=== PATIENT | male | born 1955 | race Hispanic/Latino ===

== ENCOUNTER 2020-02-10 14:20 | Emergency (ER) | payer MEDICARE, SELFPAY ==
[2020-02-10 14:28] VITALS: BP 99/55; PULSE 70; RESP 17; TEMP 37; O2SAT 92
[2020-02-10 14:34] VITALS: PULSE 70
--- NOTE | 2020-02-10 15:01 | ED.GENADULT ---
HPI - General Adult General Chief complaint: Unspecified Stated complaint: DIALYSIS PORT BLEEDING Time Seen by Provider: 02/10/20 14:42 History of Present Illness HPI narrative: 64-year-old male presents emergency department for bleeding dialysis fistula that started prior to arrival. Patient states he completed dialysis this morning, and at home this afternoon, noticed bleeding coming from his right arm dialysis shunt. Patient applying pressure without success. Patient brought in by EMS. He states his next dialysis appointment is on Saturday. Related Data Allergies Allergy/AdvReac Type Severity Reaction Status Date / Time No Known Allergies Allergy Verified 10/29/18 11:31 Review of Systems Review of Systems: Narrative: CONSTITUTIONAL: Denies fever, chills, or sweats. EYES: Denies visual changes, redness, or discharge. ENT: Denies rhinorrhea, congestion, sore throat, or otalgia. CARDIOVASCULAR: Denies chest pain, palpitations, or edema. Bleeding right arm dialysis shunt RESPIRATORY: Denies cough or dyspnea. GASTROINTESTINAL: Denies abdominal pain, nausea, vomiting, or diarrhea. GENITOURINARY: Denies dysuria or hematuria. SKIN: Denies rash or itching. MUSCULOSKELETAL: Denies back pain, joint pain, or myalgia. NEUROLOGIC: Denies headache, numbness, dizziness, or weakness. PSYCHIATRIC: Denies anxiety or depression. [facility] Social History Social History Gender identity (if verbalized by the patient): Male Exam Narrative: Exam Narrative: GENERAL: Well-appearing, well-nourished, and in no acute distress. HEAD: Normocephalic, atraumatic. EYES: PERRLA and EOMI. ENT: Nares clear, no rhinorrhea or epistaxis. Mucous membranes moist. NECK: Supple. CHEST: Clear to auscultation. No respiratory distress. HEART: Regular rate and rhythm. No murmur heard. Normal peripheral pulses. ABDOMEN: Soft, nontender, nondistended, normal active bowel sounds. EXTREMITIES: Normal range of motion. No edema. Right arm bleeding dialysis fistula. SKIN: Warm, dry, no rash. NEURO: No focal deficits. Alert and oriented x3. PSYCH: Normal mood and affect. Course Reevaluation(s) Reevaluation #1: 1635 -reevaluated patient, no current bleeding. Counseled patient to keep pressure dressings on until next dialysis appointment. Counseled patient to return to emergency department if returns and if bleeding is unable to be controlled. Vital Signs Vital signs: Vital Signs Temperature 37.0 C 02/10/20 14:28 Pulse Rate 70 02/10/20 14:28 Respiratory Rate 17 02/10/20 14:28 Blood Pressure 99/55 L 02/10/20 14:28 Pulse Oximetry 92 02/10/20 14:28 Temperature 37.0 C 02/10/20 14:28 Pulse Rate 75 02/10/20 17:38 Respiratory Rate 16 02/10/20 17:38 Blood Pressure 107/52 L 02/10/20 17:38 Pulse Oximetry 95 02/10/20 17:38 Procedures Other Procedure Procedure 1: Other Procedure: Pressure applied to wound, and Dermabond applied over wound to stop bleeding. Medical Decision Making Medical Records Medical records reviewed: Yes I reviewed the patient's medical records. Vital Signs Vital Signs: Vital Signs Temperature 37.0 C 02/10/20 14:28 Pulse Rate 70 02/10/20 14:28 Respiratory Rate 17 02/10/20 14:28 Blood Pressure 99/55 L 02/10/20 14:28 Pulse Oximetry 92 02/10/20 14:28 Temperature 37.0 C 02/10/20 14:28 Pulse Rate 75 02/10/20 17:38 Respiratory Rate 16 02/10/20 17:38 Blood Pressure 107/52 L 02/10/20 17:38 Pulse Oximetry 95 02/10/20 17:38 Lab Data Lab results reviewed: Yes I reviewed the patient's lab results. Discharge Plan Discharge Clinical Impression: Bleeding from dialysis shunt Patient Disposition: Home, Self-Care Condition: Stable Additional Instructions: Hold pressure if bleeding returns. Otherwise keep dressing on until your next dialysis appointment. Discharge Date/Time: 02/10/20 17:40
[2020-02-10 15:49] VITALS: BP 100/53; PULSE 63; RESP 15; O2SAT 91
[2020-02-10 16:56] VITALS: BP 109/53; PULSE 58; RESP 17; O2SAT 92
[2020-02-10 17:38] VITALS: BP 107/52; PULSE 75; RESP 16; O2SAT 95
== END 2020-02-10 17:40 | disposition home or self-care (01) ==
PROVIDERS: Emergency Provider Emergency Medicine
DX: T82.838A Hemorrhage due to vascular prosthetic devices, implants and grafts, initial encounter (principal)
CPT/HCPCS: 12001; 99282

== ENCOUNTER 2020-03-03 10:08 | Outpatient (CLI) | payer MEDICARE, SELFPAY ==
--- NOTE | ~2020-03-03 | US_ITS ---
EXAMINATION: US soft tissue abdomen DATE: 03/03/2020 11:05 INDICATION: Right upper quadrant abdominal swelling, mass and lump. TECHNIQUE: Multiple grayscale and Doppler ultrasound images of the region of concern at the right fla nk were obtained. COMPARISON: None FINDINGS/IMPRESSION: 2.2 x 1.6 x 1.1 cm complex subcutaneous fluid collection at the region of concern which given the rep orted rapid development would be most consistent with an abscess or hematoma. Reviewed, dictated and finalized at location A.
== END 2020-03-03 10:09 | disposition home or self-care (01) ==
DX: R19.01 Right upper quadrant abdominal swelling, mass and lump (principal)
CPT/HCPCS: 76705